=== PATIENT | female | born 2005 | race Caucasian/White ===

== ENCOUNTER 2024-09-16 11:01 | Emergency (ER) | payer BC, SELFPAY ==
--- NOTE | ~2024-09-16 | CT_ITS ---
EXAMINATION: CT abdomen pelvis wo con DATE: 09/16/2024 12:37 INDICATION: Left flank pain TECHNIQUE: Computed tomography (CT) of the abdomen and pelvis was performed without intravenous contr ast. Automated exposure control and iterative reconstruction technique were employed. The dose-length product was 191.56 mGy-cm. COMPARISON: None FINDINGS: Lung bases are clear. Heart size normal. No pericardial or pleural effusion. Liver, gallbladder, sple en, pancreas and bilateral adrenal glands are normal. Bilateral nephrolithiasis with obstructing 3 mm stone at the left ureterovesicular junction with mild left hydronephrosis. There are [address] ones measuring up to 2 mm at the lower pole calyces of the left kidney and 4 stones measuring up to 3 mm at the lower pole calyces of the right kidney. Bowels including the appendix are normal. Bladder, uterus and bilateral adnexa are unremarkable. Likely contraceptive ring in the vaginal vault. No stef e intraperitoneal gas or fluid. No pathologically enlarged abdominal or pelvic lymphadenopathy. Bones are unremarkable. IMPRESSION: 1. Bilateral nephrolithiasis with obstructing 3 mm stone at the left ureterovesicular junction with m ild left hydronephrosis. Reviewed, dictated and finalized at location A. IMPRESSION: 1. Bilateral nephrolithiasis with obstructing 3 mm stone at the left ureteroves icular junction with mild left hydronephrosis.
[2024-09-16 11:09] VITALS: BP 122/85; PULSE 76; RESP 16; TEMP 36.4; O2SAT 100
[2024-09-16 11:34] LABS: BEDSIDEPREGUCG Negative (Negative)
[2024-09-16 11:45] LABS: Basophils Absolute Auto 0.1 K/mm3 (0.0-0.1); Basophils Percent Auto 0.7 % (0.2-1.2); Eosinophils Absolute Auto 0.1 K/mm3 (0-0.3); Eosinophils Percent Auto 1.2 % (0-4.4); Hematocrit 38.9 % (37.0-47.0); Hemoglobin 12.8 g/dL (12.0-15.0); Immature Granulocyte Absolute 0.02 K/mm3 (0.00-0.031); Immature Granulocyte Percent A 0.3 % (0-0.5); Lymphocytes Absolute Auto 1.33 K/mm3 (0.9-3.2); Lymphocytes Percent Auto 17.9 % (18.3-44.2); Mean Corpuscular HGB Conc 32.9 g/dl (32-36); Mean Corpuscular Hemoglobin 28.1 pg (26-34); Mean Corpuscular Volume 85.3 fl (80-100); Mean Platelet Volume 9.9 fl (7.4-10.4); Monocytes Absolute Auto 0.4 K/mm3 (0.1-0.6); Neutrophils Absolute Auto 5.6 K/mm3 (1.3-6.7); Neutrophils Percent Auto 74.9 % (45.5-73.1); Platelet Count Result 232 k/mm3 (150-375); Red Blood Count 4.56 M/mm3 (4.2-5.4); Red Cell Distribution Width 12.5 % (11.5-14.5); White Blood Count 7.5 K/mm3 (4.5-10.0)
[2024-09-16 11:54] LABS: Alanine Aminotransferase 12 U/L (6-35); Albumin Level 4.3 g/dL (3.5-5.1); Alkaline Phosphatase 58 U/L (38-126); Anion Gap 8 mmol/L (4-12); Aspartate Amino Transferase 22 U/L (14-36); Bilirubin,Total 1.5 mg/dL (0.2-1.3); Blood Urea Nitrogen 18 mg/dL (7-17); Calcium 9.1 mg/dL (8.4-10.2); Carbon Dioxide 22 mmol/L (22-30); Chloride 105 mmol/L (98-107); Estimated CRCL calculation 68 ml/min; Estimated Glomerular Filt Rate > 60; Glucose 92 mg/dL (65-110); Lipase 72 U/L (23-300); Potassium 4.2 mmol/L (3.4-5.0); Sodium 135 mmol/L (137-145)
[2024-09-16 12:03] LABS: Add Urine Microscopic? YES; Appearance Urine Clear (Clear); Bacteria Urine None Seen /hpf; Bilirubin Urine Negative (Negative); Blood Urine 1+ (Negative); Color Urine Dark Yellow (Yellow); Glucose Urine UA Negative (Negative); Ketones Urine Negative (Negative); Leukocyte Esterase Ur Negative LEU/UL (Negative); Need Manual Microscopic Reviewed; Nitrate Urine Positive (Negative); Non Pathogenic Casts 0-2; Protein Urine Negative (Negative); RBC Urine 51-100 /hpf (0-2); Specific Grav Ur 1.021 (1.001-1.035); Squamous Epithelial Cell Urine None Seen /hpf (Few); WBC Urine 0-5 /hpf (0-3); pH Urine 6.5 (5.0-9.0)
--- OUTSIDE RECORDS SUMMARY | 2024-09-16 12:25 | XMS_ITS | Clinical Summary ---
Author Organization [facility] Address [address] [place] [address] Care Team Providers Care Logistics Supply Officer Name Role Phone None, Provider MD Primary Care Provider Unavaila ble Allergies No known active allergies Medications ondansetron (ZOFRAN-ODT) 4 MG disintegrating tablet Take 1 tablet (4 mg total) by mouth every 8 (eight) hours as needed for Nausea. 20 tablet 3 Active Social History Tobacco Use Types Packs/Day Years Used Date Smoking Tobacco: Never Assessed Comments Unknown Sex and Gender Information Value Date Recorded Sex Assigned at Not on file Legal Sex Female 5:50 AM CDT Gender Identity Not on file Sexual Orientation Not on file Last Filed Vital Signs Vital Sign Reading Time Taken Comments Blood Pressure 120/72 08/17/2022 7:29 AM CDT Pulse 80 08/17/2022 7:29 AM CDT Temperature 37.1 C (98.7 F) 08/17/2022 7:29 AM CDT Respiratory Rate 18 08/17/2022 7:29 AM CDT Oxygen Saturation 99% 08/17/2022 7:29 AM CDT Inhaled Oxygen Concentration - - Weight 50.8 kg (112 lb) 08/17/2022 5:58 AM CDT Height 157.5 cm (5' 2 ) 08/17/2022 5:58 AM CDT Body Mass Index 20.49 08/17/2022 5:58 AM CDT Plan of Treatment Health Maintenance Due Date Last Done Comments Annual Physical 09/18/2006 HPV Vaccines (1 - 3-dose series) 09/18/2018 Meningococcal B Vaccine (1 o f 2 - Standard) 2019 Hepatitis C 09/18/2021 DTaP, Tdap and Td Vaccines ( 1 - Tdap) 09/18/2022 Hepatitis B Vaccines (1 of 3 - 19+ 3-dose series) 09/18/2022 COVID-19 Vaccine (1 - 2023-2 5 season) 2024 Meningococcal Vaccine Aged Out No jairon caleb eligible based on patient's age to complete this topic Pneumococcal Vaccine: Pediat rics (0 to 5 Years) and At-Risk Patients (6 to 49 Years) Aged Out No longer eligible b ased on patient's age to complete this topic RSV Immunizations Under 20 Months Aged Out No longer eligible based on patient's age to complete this topic Insurance [place] ALAN [id number] [facility] Care Teams Logistics Supply Officer Relationship Specialty Start Date End Date None, Provider, MD PCP - General UNKNOWN PHYSICIAN SPECIALTY 08/17/22
--- OUTSIDE RECORDS SUMMARY | 2024-09-16 12:25 | XMS_ITS | Clinical Summary ---
Author Organization [facility] Address [address] [place] [address] Care Team Providers Care Paste Plant Supervisor Name Role Phone Yolanda Zaragoza MD Primary Care Provider Source Comments [facility],non-owned Affiliates and Associated Physician Practices is amultiple site organization consisting of ambulatory clinics and hospital sitesin [place], [place], [place] and [place]. This disclosure is being madepursuant to the Care Everywhere program and may not contain all information available regarding this patient. 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 Gender Identity Not on file Sexual Orientation Not on file Plan of Treatment Health Maintenance Due Date Last Done Comments HIV SCREENING 09/18/2018 HPV VACCINE (1 - 3-dose series) 09/18/2018 CHLAMYDIA/GONORRHEA SCREENING 2019 MENINGOCOCCAL (Group B) VACCINE SHARED DECISION-MAKING (1 of 2 - Standard) 2019 HEPATITIS C SCREENING 09/14/2021 DTAP/TDAP/TD VACCINES (1 - Tdap) 09/18/2022 HEPATITIS B VACCINE (1 of 3 - 19+ 3-dose series) 09/18/2022 COVID-19 VACCINE (4 - 2023-2 5 season) 2024 04/28/2021, 10/18/2020, 09/27/2020 DEPRESSION SCREENING 05/12/2024 INFLUENZA VACCINE (Season Ended) 2025 ZOSTER VACCINE (1 of 2) 09/18/2053 HIB VACCINE Aged Out No longer eligi ble based on patient's age to complete this topic MENINGOCOCCAL GROUPS A/C/Y/W VACCINE Aged Out No longer eligible b ased on patient's age to complete this topic PNEUMOCOCCAL VACCINE Aged Out No long er eligible based on patient's age to complete this topic Care Teams Paste Plant Supervisor Relationship Specialty Start Date End Date Yolanda Zaragoza MD [address] [place] [address] PCP - General 05/02/08
--- OUTSIDE RECORDS SUMMARY | 2024-09-16 12:25 | XMS_ITS | Clinical Summary ---
Author Organization [address] [address] Care Team Providers Care Radio Installer Name Role Phone Unknown, Notinfile Primary Care Provider Unavail able Miscellaneous, Not In File Unavailable Unava ilable Allergies No known active allergies Medications benzonatate (TESSALON) 200 mg capsuleIndicati ons:Bronchitis Take 1 capsule (200 mg total) by mouth 3 (three) times a day as needed for cough 30 capsule 5 Active albuterol HFA (PROVENTIL HFA,VENTOLIN HFA,PROAIR HFA) 90 mcg/actuation inhalerIndicati ons:Bronchitis Inhale 2 puffs every 6 (six) hours as needed for wheezing or shortness of breath 1 each 5 Active methylPREDNISol one (Medrol, Ramos,) 4 mg DosepackIndicat ions:Bronchitis follow package directions 1 packet 5 Active NuvaRing 0.12-0.015 mg/24 hr vaginal ring Insert 1 each into the vagina 4 Active sertraline (ZOLOFT) 25 mg tablet Take 1 tablet (25 mg total) by mouth nightly 4 Active Active Problems No known active problems Encounters Date Type Department Care Team Description 07/29/2024 11:00 AM CDT Office Visit [facility] Care at [address] [address] Symone Chin NP Bronchitis (Primary Dx) from Last 3 Months Social History Tobacco Use Types Packs/Day Years Used Date Smoking Tobacco: Never Assessed Comments No Sex and Gender Information Value Date Recorded Sex Assigned at Not on file Legal Sex Female 1:38 AM CDT Gender Identity Not on file Sexual Orientation Not on file Obstetrics History Last Filed Vital Signs Vital Sign Reading Time Taken Comments Blood Pressure 100/66 07/29/2024 11:03 AM CDT Pulse 84 07/29/2024 11:03 AM CDT Temperature 36.3 C (97.3 F) 07/29/2024 11:03 AM CDT Respiratory Rate 16 07/29/2024 11:03 AM CDT Oxygen Saturation 98% 07/29/2024 11:03 AM CDT Inhaled Oxygen Concentration - - Weight 49.9 kg (110 lb) 07/29/2024 11:03 AM CDT Height 157.5 cm (5' 2 ) 03/28/2024 2:04 PM PECAN CLEANER Body Mass Index 20.12 03/28/2024 2:04 PM PECAN CLEANER Plan of Treatment Health Maintenance Due Date Last Done Comments Depression Screening 2003 Hepatitis C Screening 2003 HPV Vaccines (1 - 3-dose series) 09/18/2018 Meningococcal B Vaccine (1 of 2 - Standard) 2019 Regular Well Visit/Exam 18-64 09/18/2021 Covid-19 Vaccine ( - season) 2024 04/28/2021, 10/18/2020, 09/27/2020 DTaP/Tdap/Td Vaccine (5 - Td or Tdap) 01/01/2032 12/31/2021, 2008, 12/19/2004, Additional history exists Hepatitis B Screening Completed 06/20/2004 , 05/09/2004, 2003 Pneumococcal vaccine <65 Aged Out 12/19/2004, 03/12 No longer eligible based on patient's age to complete this topic Varicella Vaccines Completed 2008, 2004 Meningococcal Vaccine Completed 12/11/2020 Influenza Vaccine Completed 02/24/2024, , 03/01/2009, Additional history exists Procedures Procedure Name Priority Date/Time Associated Diagnosis Comments POC INFLUENZA A/B, COVID-19 ANTIGEN Routine 07/29/2024 11:20 AM CDT Bronchitis from Last 3 Months Results * POC Influenza A/B, COVID-19 antigen (07/29/2024 11:20 AM CDT) Influenza A Ag, POC Negative Negative [facility] Influenza B Ag, POC Negative Negative [facility] COVID-19 Ag POC Presumptive Negative Presumptive Negative, Invalid [facility] Nasal 07/29/2024 11:2 0 AM CDT Symone Chin NP POINT OF CARE TEST ORDERABLES Final Result [facility] [address] [place] [address], [facility] from Last 3 Months Insurance [employer] [place] [employer] [place] Care Teams Radio Installer Relationship Specialty Start Date End Date Unknown, Notinfile PCP - General 07/07/23 Miscellaneous, Not In File 07/07/23
--- OUTSIDE RECORDS SUMMARY | 2024-09-16 12:25 | XMS_ITS | Referral Summary ---
Author Organization [address] [address] Care Team Providers Care Aviation Manager Name Role Phone Unknown, Notinfile Primary Care Provider Unavail able Miscellaneous, Not In File Unavailable Unava ilable Encounters Date Type Department Care Team Description 07/29/2024 11:00 AM CDT Office Visit [facility] Medical Group Convenient Care at [address] [address] Symone Chin NP Bronchitis (Primary Dx) from Last 3 Months Allergies No known active allergies Medications benzonatate [...] Active Active Problems No known active problems Social History Tobacco Use Types Packs/Day Years [...] cm (5' 2 ) 03/28/2024 2:04 PM HEALTHCARE NETWORK CONSULTANT Body Mass Index 20.12 03/28/2024 2:04 PM HEALTHCARE NETWORK CONSULTANT Plan of Treatment Not on file Procedures Procedure Name Priority Date/Time Associated Diagnosis Comments POC INFLUENZA A/B, COVID-19 ANTIGEN Routine 07/29/2024 11:20 AM CDT Bronchitis from Last 3 Months Results * POC Influenza A/B, COVID-19 antigen (07/29/2024 11:20 AM CDT) Influenza A Ag, POC Negative Negative [facility] Influenza B Ag, POC Negative Negative [facility] COVID-19 Ag POC Presumptive Negative Presumptive Negative, Invalid [facility] Nasal 07/29/2024 11:2 0 AM CDT Symone Chin NP POINT OF CARE TEST ORDERABLES Final Result [facility] [address] [place] [address], [facility] from Last 3 Months Insurance [place] [id number] [facility] [employer] [place] Care Teams Aviation Manager Relationship Specialty Start Date End Date Unknown, Notinfile PCP - General 07/07/23 Miscellaneous, Not In File 07/07/23
[2024-09-16 12:46] VITALS: BP 111/73; PULSE 72; RESP 14; O2SAT 100
--- NOTE | 2024-09-16 12:50 | ED.GENADULT ---
HPI - General Adult General Chief complaint: Back Pain/Injury Stated complaint: kidney stone Time Seen by Provider: 09/16/24 11:52 History of Present Illness HPI narrative: Patient 18-year-old female who presents emergency department with chief complaint of flank pain. Patient reports she has pain on the left side reports she has prior history of kidney stones been able to pass the before in the past patient states that she has had no prior surgeries Related Data Allergies Allergy/AdvReac Type Severity Reaction Status Date / Time No Known Allergies Allergy Verified 09/16/24 11:31 Review of Systems Review of Systems: A 10 system review of systems was completed on the patient and is negative except for what is stated in the HPI. Nursing and ancillary documentation was reviewed. Exam Narrative: GENERAL: Well-appearing, well-nourished, and in no acute distress. HEAD: Normocephalic, atraumatic. EYES: PERRLA and EOMI. ENT: Nares clear, no rhinorrhea or epistaxis. Mucous membranes moist. NECK: Supple. CHEST: Clear to auscultation. No respiratory distress. HEART: Regular rate and rhythm. No murmur heard. Normal peripheral pulses. ABDOMEN: Soft, nontender, nondistended, normal active bowel sounds. EXTREMITIES: Normal range of motion. No edema. SKIN: Warm, dry, no rash. NEURO: No focal deficits. Alert and oriented x3. PSYCH: Normal mood and affect. Course Vital Signs Vital signs: Vital Signs Temperature 36.4 C 09/16/24 11:09 Pulse Rate 76 09/16/24 11:09 Respiratory Rate 16 09/16/24 11:09 Blood Pressure 122/85 09/16/24 11:09 Pulse Oximetry 100 09/16/24 11:09 Oxygen Delivery Room Air 09/16/24 11:09 Temperature 36.4 C 09/16/24 11:09 Pulse Rate 72 09/16/24 12:46 Respiratory Rate 14 09/16/24 12:46 Blood Pressure 111/73 09/16/24 12:46 Pulse Oximetry 100 09/16/24 12:46 Oxygen Delivery Room Air 09/16/24 11:09 Medical Decision Making [facility] Narrative Medical decision making narrative: Differential diagnosis includes ureterolithiasis, UTI, pyelonephritis The patient is negative a test urinalysis showed no evidence UTI CT scan showed a 3 mm stone at the UVJ Vital Signs Vital Signs: Vital Signs Temperature 36.4 C 09/16/24 11:09 Pulse Rate 76 09/16/24 11:09 Respiratory Rate 16 09/16/24 11:09 Blood Pressure 122/85 09/16/24 11:09 Pulse Oximetry 100 09/16/24 11:09 Oxygen Delivery Room Air 09/16/24 11:09 Temperature 36.4 C 09/16/24 11:09 Pulse Rate 72 09/16/24 12:46 Respiratory Rate 14 09/16/24 12:46 Blood Pressure 111/73 09/16/24 12:46 Pulse Oximetry 100 09/16/24 12:46 Oxygen Delivery Room Air 09/16/24 11:09 Lab Data 09/16/24 11:29 09/16/24 11:33 Labs: Lab Results 09/16/24 09/16/24 09/16/24 Range/Units 11:29 11:30 11:33 WBC 7.5 (4.5-10.0) K/mm3 RBC 4.56 (4.2-5.4) M/mm3 Hgb 12.8 (12.0-15.0) g/dL Hct 38.9 (37.0-47.0) % MCV 85.3 (80-100) fl MCH 28.1 (26-34) pg MCHC 32.9 (32-36) g/dl RDW 12.5 (11.5-14.5) % Plt Count 232 (150-375) k/mm3 MPV 9.9 (7.4-10.4) fl Immature Gran % (Auto) 0.3 (0-0.5) % Neut % (Auto) 74.9 H (45.5-73.1) % Lymph % (Auto) 17.9 L (18.3-44.2) % [place] % (Auto) 5.0 (2.6-8.5) % Eos % (Auto) 1.2 (0-4.4) % Baso % (Auto) 0.7 (0.2-1.2) % Lymph # (Auto) 1.33 (0.9-3.2) K/mm3 [place] # (Auto) 0.4 (0.1-0.6) K/mm3 Eos # (Auto) 0.1 (0-0.3) K/mm3 Baso # (Auto) 0.1 (0.0-0.1) K/mm3 Abs Immat Gran (auto) 0.02 (0.00-0.031) K/mm3 Absolute Neuts (auto) 5.6 (1.3-6.7) K/mm3 Absolute Nucleated RBC 0.000 (0.0-0.012) K/mm3 Nucleated RBC % 0.0 (0.0-0.2) % Sodium 135 L (137-145) mmol/L Potassium 4.2 (3.4-5.0) mmol/L Chloride 105 (98-107) mmol/L Carbon Dioxide 22 (22-30) mmol/L Anion Gap 8 (4-12) mmol/L BUN 18 H (7-17) mg/dL Creatinine 0.88 (0.7-1.0) mg/dL Estim Creat Clear Calc 68 ml/min Estimated GFR > 60 (59 - ) Glucose 92 (65-110) mg/dL Calcium 9.1 (8.4-10.2) mg/dL Total Bilirubin 1.5 H (0.2-1.3) mg/dL AST 22 (14-36) U/L ALT 12 (6-35) U/L Alkaline Phosphatase 58 (38-126) U/L Total Protein 7.0 (6.3-8.2) g/dL Albumin 4.3 (3.5-5.1) g/dL Lipase 72 (23-300) U/L Urine Color Dark yellow (Yellow) Urine Appearance Clear (Clear) Urine pH 6.5 (5.0-9.0) Ur Specific [place] 1.021 (1.001-1.035) Urine Protein Negative (Negative) mg/dL Urine Glucose (UA) Negative (Negative) mg/dL Urine Ketones Negative (Negative) mg/dL Ur Blood (Man) 1+ H (Negative) Urine Nitrate Positive H (Negative) Urine Bilirubin Negative (Negative) Urine Urobilinogen 1.0 (<2.0) mg/dL Add Ur Microanalysis Reviewed Leukocyte Esterase Rfl Negative (Negative) BERNABE/UL Urine RBC 51-100 H (0-2) /hpf Urine WBC 0-5 (0-3) /hpf Ur Squamous Epith Cells None seen (Few) /hpf Urine Bacteria None seen /hpf Urine Casts 0-2 POC Urine HCG, Qual Negative (Negative) Discharge Plan Discharge Clinical Impression: Ureterolithiasis Patient Disposition: Home Condition: Stable Instructions: Antibiotic Form, Kidney Stones (ED), How to Strain Your Urine (ED) Patient Language: German Prescriptions: New hydrocodone-acetaminophen 5-325 mg tablet 1 tablet PO Q6H PRN (Reason: pain) 3 Days Qty: 12 0RF ondansetron 4 mg tablet,disintegrating 4 mg PO Q8H PRN (Reason: nausea and vomiting) Qty: 10 0RF tamsulosin [Flomax] 0.4 mg capsule 0.4 mg PO DAILY Qty: 10 0RF Follow-up/Referrals: Anthony Delong DO [Physician] - Lance Parham MD [Physician] - UNKNOWN,DOCTOR [Primary Care Provider] - Time of Disposition: 12:54
[2024-09-16] MEDS: KETOROLAC 15 MG/ML VIAL (*BKC) IV PUSH (13:00)
--- OUTSIDE RECORDS SUMMARY | 2024-09-23 08:54 | XMS_ITS | Clinical Summary ---
Author Organization [facility] Address [address] [place] [id number] Care Team Providers Care Community Life Director Name Role Phone None, Provider MD Primary [...] to complete this topic Insurance [place] ALAN [id number] [facility] Care Teams Community Life Director Relationship Specialty Start Date End Date None, Provider, MD PCP - General UNKNOWN PHYSICIAN SPECIALTY 08/17/22
--- OUTSIDE RECORDS SUMMARY | 2024-09-23 08:54 | XMS_ITS | Clinical Summary ---
Author Organization [facility] Address [address] [place] [address] Care Team Providers Care Bodily Injury Adjuster Name Role Phone Yolanda Zaragoza MD Primary Care Provider [phone] Source Comments [facility],non-owned Affiliates and Associated Physician Practices is amultiple site organization consisting of ambulatory clinics and hospital sitesin [place], [place], [place] and [place]. This disclosure is being madepursuant to the Care Everywhere program and may not contain all information available regarding this patient. 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
--- OUTSIDE RECORDS SUMMARY | 2024-09-23 08:54 | XMS_ITS | Referral Summary ---
Author Organization [address] [address] Care Team Providers Care Residential Appraiser Name Role Phone Unknown, Notinfile Primary Care Provider Unavail able Miscellaneous, Not In File Unavailable Unava ilable Encounters Date Type Department Care Team Description 07/29/2024 11:00 AM CDT Office Visit [facility] Medical Group Convenient Care at [address] [address] Symone Chin NP Bronchitis (Primary [...] cm (5' 2 ) 03/28/2024 2:04 PM MACHINE WORKER Body Mass Index 20.12 03/28/2024 2:04 PM MACHINE WORKER Plan of Treatment Not on file Procedures Procedure Name Priority Date/Time Associated Diagnosis Comments POC INFLUENZA A/B, COVID-19 ANTIGEN Routine 07/29/2024 11:20 AM CDT Bronchitis from Last 3 Months Results * POC Influenza A/B, COVID-19 antigen (07/29/2024 11:20 AM CDT) Influenza A Ag, POC Negative Negative [facility] Influenza B Ag, POC Negative Negative [facility] COVID-19 Ag POC Presumptive Negative Presumptive Negative, Invalid [facility] Nasal 07/29/2024 11:2 0 AM CDT Symone Chin NP POINT OF CARE TEST ORDERABLES Final Result [facility] [address] [place] [address], [facility] from Last 3 Months Insurance [place] [id number] [facility] [place] Care Teams Residential Appraiser Relationship Specialty Start Date End Date Unknown, Notinfile PCP - General 07/07/23 Miscellaneous, Not In File 07/07/23
--- OUTSIDE RECORDS SUMMARY | 2024-09-23 08:54 | XMS_ITS | Clinical Summary ---
Author Organization [address] [address] Care Team Providers Care Tubular Splitting Machine Tender Name Role Phone Unknown, Notinfile Primary Care [...] Description 07/29/2024 11:00 AM CDT Office Visit [facility] Medical Group Convenient Care at [address] [address] Symone Chin NP Bronchitis (Primary [...] cm (5' 2 ) 03/28/2024 2:04 PM PRODUCTION PLANNING MANAGER Body Mass Index 20.12 03/28/2024 2:04 PM PRODUCTION PLANNING MANAGER Plan of Treatment Health Maintenance Due Date [...] CDT) Influenza A Ag, POC Negative Negative [facility] Influenza B Ag, POC Negative Negative [facility] COVID-19 Ag POC Presumptive Negative Presumptive Negative, Invalid [facility] Nasal 07/29/2024 11:2 0 AM CDT Symone Chin NP POINT OF CARE TEST ORDERABLES Final Result [facility] ED[facility] [address] [place] [address], [facility] from Last 3 Months Insurance [place] Care Teams Tubular Splitting Machine Tender Relationship Specialty Start Date End Date Unknown, Notinfile PCP - General 07/07/23 Miscellaneous, Not In File 07/07/23
== END 2024-09-16 13:11 | disposition home or self-care (01) ==
PROVIDERS: Emergency Provider Emergency Medicine
DX: N20.1 Calculus of ureter (principal)
CPT/HCPCS: 36415; 74176; 80053; 81001; 81025; 83690; 85025; 87086; 96374; 99284; J1885